=== PATIENT | female | born 2000 | race Two or more races ===

== ENCOUNTER 2023-11-20 19:08 | Inpatient (IN) | payer MEDICAID, OTHER ==
[~2023-11-20] VITALS: Ht 165.1 cm; Wt 59.1 kg
[2023-11-20 19:56] LABS: Basophils # (auto) 0 10 ^3/uL (0-0.2); Basophils % (auto) 0.5 % (0.0-2.0); Eosinophils # (auto) 0.6 10 ^3/uL (0-0.8); Eosinophils % (auto) 7.1 % (0.0-7.0); Hemoglobin 13.6 g/dL (12.2-16.2); Lymphocytes # (auto) 2.9 10 ^3/uL (0.4-5.4); Lymphocytes % (auto) 34.5 % (10.0-50.0); Mean Corpuscular Hemoglobin 28.4 pg (28.0-32.0); Mean Corpuscular Hgb Conc. 33.3 g/dL (32.0-36.0); Mean Corpuscular Volume 85.4 fL (80.0-100.0); Monocytes # (auto) 0.4 10 ^3/uL (0-1.3); Monocytes % (auto) 4.9 % (0.0-12.0); Neutrophils # (auto) 4.5 10 ^3/uL (1.6-8.6); Nucleated Red Blood Cells % 0.1 %; Red Blood Cells 4.81 10^6/uL (4.0-5.20); Red Cell Distribution Width 14.2 % (11.8-14.3); White Blood Cell 8.5 10^3/uL (4.4-10.8)
[2023-11-20] MEDS: LORazepam 2MG/ML-1ML VIAL IV ONE (19:57)
[2023-11-20] MEDS: levETIRAcetam 1000 mg/100ml 100 ML IV ONE (19:58)
[2023-11-20 20:10] VITALS: PULSE 90; RESP 22; O2SAT 96
[2023-11-20 20:18] LABS: Acetaminophen < 2.0 UG/ML (10.0-20.0)
[2023-11-20 20:31] LABS: Alanine Aminotransferase 16 U/L (7-40); Albumin 4.3 g/dL (3.2-4.8); Alkaline Phosphatase 60 U/L (46-116); Anion Gap 10 (5-15); Aspartate Aminotransferase 26 U/L (13-40); Bilirubin, Total 0.6 mg/dL (0.2-1.0); Blood Alcohol 196.2 mg/dL (<10); Calcium 9.1 mg/dL (8.5-10.1); Carbon Dioxide 22 mmol/L (20-30); Chloride 111 mmol/L (98-107); Glucose 96 mg/dL (74-106); Potassium 3.5 mmol/L (3.5-5.1); Sodium 143 mmol/L (136-145); Total Protein 6.5 g/dL (5.7-8.2)
[2023-11-20] MEDS: diphenhdrAMINE HCL 50 MG/1 ML VL IV ONE (20:56)
[2023-11-20] MEDS: FOLIC ACID 1 MG, MAGNESIUM SULF SDV 50% 8 MEQ, MULTIPLE VITAMIN 10 ML, THIAMINE INJ 100... INJ SCH (20:57)
[2023-11-20 21:09] LABS: Blood Urea Nitrogen < 5 mg/dL (9-23)
[2023-11-20 21:10] LABS: Salicylate < 3.0 mg/dL (2.8-20.0)
[2023-11-20 21:11] LABS: Lipase 31 U/L (12-53)
[2023-11-20] MEDS: HYDROmorphone HCL 2 MG/ML VL/or syr IV ONE (21:52)
[2023-11-20 22:22] LABS: Urine Bacteria NONE SEEN /hpf (None Seen); Urine Blood 3+ /uL (Negative); Urine Clarity Clear (Clear); Urine Color Colorless (Yellow); Urine Protein, UAD Negative (Negative); Urine Specific Gravity 1.013 (1.001-1.035); Urine Urobilinogen Normal (Negative); Urine WBC 5 /hpf (0 - 5); Urine pH 6.5 (5.0-8.0)
[2023-11-20 22:32] LABS: Amphetamine Screen, Urine Neg (NEGATIVE); Barbiturate Scree,Urine Neg (NEGATIVE); Benzodiazephine Screen, Urine Pos (NEGATIVE); Cocaine Screen, Urine Neg (NEGATIVE)
[2023-11-20 22:33] LABS: Cannabinoid Screen, Urine Pos (NEGATIVE); Opiate Scree,Urine Neg (NEGATIVE); Phencyclidine Screen, Urine Neg (NEGATIVE)
[2023-11-20] MEDS: SODIUM CHLORIDE 0.9% 1,000 ML IV ONE (23:29)
[2023-11-21] MEDS: LORazepam 2MG/ML-1ML VIAL IV ONE (01:42)
[2023-11-21] MEDS: ONDANSETRON HCL 4 MG/2 ML VIAL IV ONE (01:43)
[2023-11-21] MEDS: MORPHINE SULFATE INJ 2 MG/ml SYRG IV ONE (01:45)
[2023-11-21] MEDS ORDERED: KETAMINE 50mg/ML 1ml syringe ONE (01:59)
[2023-11-21] MEDS: LIDOCAINE 2%HCL (LOCAL ANESTH.) INJ 10ml MDV IJ ONE (01:59)
[2023-11-21] MEDS: KETAMINE 50mg/ML 10ml Vial (500mg/10ml) IV ONE (02:00)
[2023-11-21] MEDS: cefTRIAXone 1GM/50ML D5W 50 ML IV ONE (02:28)
[2023-11-21] MEDS ORDERED: ACETAMINOPHEN 325 MG TAB PO PRN (03:00)
[2023-11-21] MEDS ORDERED: ONDANSETRON HCL 4 MG/2 ML VIAL IV PRN (03:00)
[2023-11-21] MEDS ORDERED: LORazepam 2MG/ML-1ML VIAL IV PRN (03:00)
[2023-11-21] MEDS ORDERED: TEMAZEPAM 15 MG CAP PO PRN (03:00)
[2023-11-21] MEDS ORDERED: LORA-1121 PO (03:03)
[2023-11-21] MEDS ORDERED: FLUO60TA7 PO (03:05)
[2023-11-21 04:37] VITALS: TEMP 98.1
[2023-11-21] MEDS: levETIRAcetam 500 MG TAB PO SCH (09:47)
[2023-11-21] MEDS: HYDROcodone-ACET 7.5/325MG TAB PO PRN (09:48)
[2023-11-21 09:53] VITALS: PULSE 84; RESP 16; O2SAT 98
[2023-11-21 12:00] VITALS: BP 86/32; PULSE 97; RESP 25; O2SAT 97
[2023-11-21] MEDS ORDERED: FOLIC ACID 1 MG, MULTIPLE VITAMIN 10 ML, MAGNESIUM SULF SDV 50% 8 MEQ, THIAMINE INJ 100... INJ SCH (18:00)
[2023-11-22] MEDS ORDERED: cefTRIAXone 1GM/50ML D5W 50 ML IV SCH (03:00)
[2023-11-22] MEDS ORDERED: THIAMINE HCL 100 MG TAB PO SCH (10:00)
== END 2023-11-21 14:55 | disposition left against medical advice (07) | DRG 53 ==
LOC: EDBD 19:08 → ER 19:08 → OVERFLOW 11-21 02:57 → ER 11-21 03:01
PROVIDERS: ADMIT Nurse Practitioner; ATTEND Nurse Practitioner
DX: G40.509 Epileptic seizures related to external causes, not intractable, without status epilepticus (principal); F10.129 Alcohol abuse with intoxication, unspecified; N39.0 Urinary tract infection, site not specified; X58.XXXA Exposure to other specified factors, initial encounter; S61.412A Laceration without foreign body of left hand, initial encounter; Y90.9 Presence of alcohol in blood, level not specified; Y93.89 Activity, other specified; Y92.89 Other specified places as the place of occurrence of the external cause; Y99.8 Other external cause status
CPT/HCPCS: 36415; 70450; 71045; 73130; 80053; 80307; 80320; 80329; 81001; 83690; 84484; 84702; 85025; 93005; 96365; 96367; 96375; 96376; G0378; J2405

== ENCOUNTER 2024-01-18 22:05 | Inpatient (IN) | payer MEDICAID ==
[~2024-01-18] VITALS: Ht 170.2 cm; Wt 54.4 kg
[~2024-01-18 22:05] MED LIST: FLUO60TA7 PO; LORA-1121 PO
[2024-01-18 22:55] VITALS: PULSE 137; RESP 20; O2SAT 97
[2024-01-18] MEDS: ETOMIDATE (2MG/ML) 20ML VIAL IV ONE (23:01)
[2024-01-18] MEDS: SUCCINYLCHOLINE CHLORIDE 20 MG/ML 10ML VIAL IV ONE (23:02)
[2024-01-18] MEDS: fentaNYL Drip 2500mCg/250mlNS 250 ML IV SCH (23:05)
[2024-01-18] MEDS: PROPOFOL 100 ML IV SCH (23:05)
[2024-01-18 23:16] LABS: Basophils # (auto) 0.1 10 ^3/uL (0-0.2); Eosinophils # (auto) 0.4 10 ^3/uL (0-0.8); Eosinophils % (auto) 4.3 % (0.0-7.0); Hematocrit 43.2 % (36.0-46.0); Hemoglobin 14.4 g/dL (12.2-16.2); Lymphocytes # (auto) 2.9 10 ^3/uL (0.4-5.4); Lymphocytes % (auto) 29.6 % (10.0-50.0); Mean Corpuscular Hemoglobin 28.8 pg (28.0-32.0); Mean Corpuscular Hgb Conc. 33.5 g/dL (32.0-36.0); Mean Corpuscular Volume 86.1 fL (80.0-100.0); Monocytes # (auto) 0.7 10 ^3/uL (0-1.3); Monocytes % (auto) 6.6 % (0.0-12.0); Neutrophils # (auto) 5.8 10 ^3/uL (1.6-8.6); Neutrophils % (auto) 58.5 % (37.0-80.0); Nucleated Red Blood Cells % 0.1 %; Red Blood Cells 5.01 10^6/uL (4.0-5.20); Red Cell Distribution Width 13.5 % (11.8-14.3); White Blood Cell 9.9 10^3/uL (4.4-10.8)
[2024-01-18 23:23] LABS: Chloride 113 mmol/L (98-107); Potassium 3.6 mmol/L (3.5-5.1); Sodium 143 mmol/L (136-145)
[2024-01-18 23:25] LABS: Anion Gap 11 (5-15); Calcium 9.3 mg/dL (8.7-10.4); Carbon Dioxide 19 mmol/L (20-30)
[2024-01-18 23:30] LABS: Blood Urea Nitrogen 8 mg/dL (9-23); Glucose 111 mg/dL (74-106)
[2024-01-18 23:45] VITALS: BP 109/67; PULSE 96; RESP 23; O2SAT 98
[2024-01-18 23:47] LABS: Amphetamine Screen, Urine Pos (NEGATIVE); Barbiturate Scree,Urine Neg (NEGATIVE); Benzodiazephine Screen, Urine Pos (NEGATIVE); Cocaine Screen, Urine Neg (NEGATIVE)
[2024-01-18 23:48] LABS: Cannabinoid Screen, Urine Pos (NEGATIVE); Opiate Scree,Urine Neg (NEGATIVE); Phencyclidine Screen, Urine Neg (NEGATIVE)
[2024-01-18 23:59] LABS: Blood Alcohol 309.2 mg/dL (<10)
[2024-01-19] VITALS (87 sets, daily range): BP systolic 87–127; BP diastolic 48–85; PULSE 82–122; RESP 16–34; TEMP 97.2–100.4; O2SAT 98–100
[2024-01-19 01:01] LABS: Base Excess -6.7 mmol/L (-2.0-2.0)
[2024-01-19 03:31] LABS: Urine Bacteria NONE SEEN /hpf (None Seen); Urine Blood Negative /uL (Negative); Urine Clarity Clear (Clear); Urine Protein, UAD Negative (Negative); Urine Specific Gravity 1.006 (1.001-1.035); Urine Urobilinogen Normal (Negative); Urine WBC <1 /hpf (0 - 5)
[2024-01-19 03:32] LABS: Urine Color STRAW (Yellow)
[2024-01-19] MEDS ORDERED: NITROGLYCERIN 0.4 MG SL TAB SL PRN (04:30)
[2024-01-19] MEDS ORDERED: MORPHINE SULFATE INJ 2 MG/ml SYRG IV PRN (04:30)
[2024-01-19] MEDS ORDERED: ACETAMINOPHEN 650 MG RECT SUPP PR PRN (04:30)
[2024-01-19 04:39] LABS: Basophils # (auto) 0 10 ^3/uL (0-0.2); Basophils % (auto) 0.5 % (0.0-2.0); Eosinophils # (auto) 0.2 10 ^3/uL (0-0.8); Eosinophils % (auto) 2.9 % (0.0-7.0); Hematocrit 42.1 % (36.0-46.0); Hemoglobin 13.7 g/dL (12.2-16.2); Lymphocytes # (auto) 2.7 10 ^3/uL (0.4-5.4); Lymphocytes % (auto) 36.8 % (10.0-50.0); Mean Corpuscular Hemoglobin 28.5 pg (28.0-32.0); Mean Corpuscular Hgb Conc. 32.5 g/dL (32.0-36.0); Mean Corpuscular Volume 87.5 fL (80.0-100.0); Monocytes # (auto) 0.6 10 ^3/uL (0-1.3); Monocytes % (auto) 8.4 % (0.0-12.0); Neutrophils # (auto) 3.8 10 ^3/uL (1.6-8.6); Neutrophils % (auto) 51.4 % (37.0-80.0); Red Blood Cells 4.81 10^6/uL (4.0-5.20); Red Cell Distribution Width 14.2 % (11.8-14.3); White Blood Cell 7.3 10^3/uL (4.4-10.8)
[2024-01-19] MEDS ORDERED: LORazepam 2MG/ML-1ML VIAL IV PRN (04:45)
[2024-01-19 05:12] LABS: Alanine Aminotransferase 12 U/L (7-40); Albumin 4.3 g/dL (3.2-4.8); Alkaline Phosphatase 69 U/L (46-116); Anion Gap 9 (5-15); Aspartate Aminotransferase 20 U/L (13-40); BUN/Creatinine Ratio 13.3 (10.0-20.0); Bilirubin, Total 1.2 mg/dL (0.2-1.0); Blood Urea Nitrogen 8 mg/dL (9-23); Calcium 8.6 mg/dL (8.5-10.1); Carbon Dioxide 21 mmol/L (20-30); Chloride 113 mmol/L (98-107); Glucose 121 mg/dL (74-106); Potassium 3.3 mmol/L (3.5-5.1); Sodium 143 mmol/L (136-145); Total Protein 6.6 g/dL (5.7-8.2)
[2024-01-19 08:05] LABS: Base Excess -3.2 mmol/L (-2.0-2.0)
[2024-01-19] MEDS: NOREPINEPHRINE 8 MG/250ML KIT 250 ML IV SCH (09:19)
[2024-01-19] MEDS: MIDAZOLAM DRIP 50 mg/50mL 50 ML IV SCH (10:45)
[2024-01-19] MEDS ORDERED: SODIUM CHLORIDE 0.9% 3,000 ML IV ONE (11:45)
[2024-01-19] MEDS: SODIUM CHLORIDE 0.9% 1,000 ML IV ONE (12:25)
[2024-01-19] MEDS: SOD CHL 0.9%/ KCL 20MEQ 1,000 ML IV SCH (12:26)
[2024-01-19] MEDS: PANTOPRAZOLE 40 MG/10 ML VIAL INJ IV SCH (12:26)
[2024-01-19] MEDS: FOLIC ACID 1 MG, MULTIPLE VITAMIN 10 ML, MAGNESIUM SULF SDV 50% 8 MEQ, THIAMINE INJ 100... INJ SCH (18:49)
[2024-01-20] VITALS (98 sets, daily range): BP systolic 85–134; BP diastolic 39–90; PULSE 79–145; RESP 11–37; TEMP 98.6–102.6; O2SAT 89–100
[2024-01-20 04:06] LABS: Basophils # (auto) 0 10 ^3/uL (0-0.2); Basophils % (auto) 0.3 % (0.0-2.0); Eosinophils # (auto) 0.6 10 ^3/uL (0-0.8); Eosinophils % (auto) 4.7 % (0.0-7.0); Hematocrit 37.1 % (36.0-46.0); Lymphocytes # (auto) 2.2 10 ^3/uL (0.4-5.4); Mean Corpuscular Hemoglobin 28.2 pg (28.0-32.0); Mean Corpuscular Hgb Conc. 32.4 g/dL (32.0-36.0); Mean Corpuscular Volume 87.3 fL (80.0-100.0); Monocytes # (auto) 1.5 10 ^3/uL (0-1.3); Monocytes % (auto) 11.4 % (0.0-12.0); Neutrophils # (auto) 8.8 10 ^3/uL (1.6-8.6); Neutrophils % (auto) 66.6 % (37.0-80.0); Nucleated Red Blood Cells % 0.1 %; Red Blood Cells 4.25 10^6/uL (4.0-5.20); Red Cell Distribution Width 14.2 % (11.8-14.3); White Blood Cell 13.2 10^3/uL (4.4-10.8)
[2024-01-20 04:14] LABS: Alanine Aminotransferase 16 U/L (7-40); Albumin 3.5 g/dL (3.2-4.8); Alkaline Phosphatase 66 U/L (46-116); Anion Gap 5 (5-15); Aspartate Aminotransferase 45 U/L (13-40); BUN/Creatinine Ratio 13.2 (10.0-20.0); Blood Urea Nitrogen 5 mg/dL (9-23); Calcium 7.9 mg/dL (8.7-10.4); Carbon Dioxide 25 mmol/L (20-30); Chloride 108 mmol/L (98-107); Glucose 119 mg/dL (74-106); Potassium 3.9 mmol/L (3.5-5.1); Sodium 138 mmol/L (136-145)
[2024-01-20 04:15] LABS: Bilirubin, Total 0.6 mg/dL (0.2-1.0); Total Protein 5.7 g/dL (5.7-8.2)
[2024-01-20] MEDS: MIDAZOLAM DRIP 50 mg/50mL 50 ML IV SCH (07:30)
[2024-01-20] MEDS: ONDANSETRON HCL 4 MG/2 ML VIAL IV PRN (08:14)
[2024-01-20] MEDS ORDERED: LORazepam 2MG/ML-1ML VIAL IV PRN (17:00)
[2024-01-20] MEDS: SOD CHL 0.45% 1,000 ML IV SCH (17:10)
[2024-01-20] MEDS: diphenhdrAMINE HCL 50 MG/1 ML VL IM ONE (20:34)
[2024-01-20] MEDS: LORazepam 2MG/ML-1ML VIAL IM ONE (20:35)
[2024-01-21] VITALS (20 sets, daily range): BP systolic 93–133; BP diastolic 47–93; PULSE 88–133; RESP 12–29; TEMP 37.2; O2SAT 91–98
[2024-01-21] MEDS: MULTIPLE VITAMIN TAB PO ONE (10:30)
[2024-01-21] MEDS: FLUoxetine HCL 20 MG CAP PO ONE (10:30)
[2024-01-21] MEDS: METOPROLOL TARTRATE 25 MG TAB PO SCH (10:31)
[2024-01-21] MEDS: THIAMINE HCL 100 MG TAB PO ONE (10:41)
[2024-01-21] MEDS ORDERED: METO25TA5 PO (12:53)
== END 2024-01-21 15:25 | disposition home or self-care (01) | DRG 812 ==
LOC: EDBD 22:05 → ER 22:05 → TELE 01-19 04:26 → ICU WEST 01-19 06:07
PROVIDERS: ADMIT Internal Medicine; ATTEND Nurse Practitioner Acute Care
PROC: 0BH17EZ Insertion of Endotracheal Airway into Trachea, Via Natural or Artificial Opening (ICD-10-PCS; 2024-01-18)
PROC: 5A1945Z Respiratory Ventilation, 24-96 Consecutive Hours (ICD-10-PCS; principal; 2024-01-19)
PROC: 02H633Z Insertion of Infusion Device into Right Atrium, Percutaneous Approach (ICD-10-PCS; 2024-01-19)
PROC: B548ZZA Ultrasonography of Superior Vena Cava, Guidance (ICD-10-PCS; 2024-01-19)
DX: T43.651A Poisoning by methamphetamines accidental (unintentional), initial encounter (principal); J96.00 Acute respiratory failure, unspecified whether with hypoxia or hypercapnia; N17.0 Acute kidney failure with tubular necrosis; R57.1 Hypovolemic shock; G92.8 Other toxic encephalopathy; I95.9 Hypotension, unspecified; E86.0 Dehydration; F15.129 Other stimulant abuse with intoxication, unspecified; Y90.8 Blood alcohol level of 240 mg/100 ml or more; G40.909 Epilepsy, unspecified, not intractable, without status epilepticus; F32.A Depression, unspecified; Z91.148 Patient's other noncompliance with medication regimen for other reason; Y92.89 Other specified places as the place of occurrence of the external cause; F19.10 Other psychoactive substance abuse, uncomplicated
CPT/HCPCS: 36415; 36600; 71045; 73130; 80048; 80053; 80307; 80320; 81001; 82542; 82805; 84702; 85025; 87070; 87081; 87086; 87205; 94002; 94003; 94640; 96374; 96375; C9113; G0378; J0330; J2250; J2405; J2704; J7060

== ENCOUNTER 2024-04-17 04:06 | Emergency (ER) | payer MEDICAID ==
[~2024-04-17] VITALS: Ht 162.6 cm; Wt 62.2 kg
[~2024-04-17 04:06] MED LIST changes: +METO25TA5 PO
[2024-04-17 04:19] VITALS: BP 121/70; PULSE 120; RESP 22; O2SAT 100
== END 2024-04-17 06:47 | disposition left against medical advice (07) ==
LOC: EDBD 04:06 → ER 04:08
DX: R10.11 Right upper quadrant pain (principal); R11.0 Nausea; Z53.21 Procedure and treatment not carried out due to patient leaving prior to being seen by health care provider